=== PATIENT | male | born 1960 | race Caucasian/White ===

== ENCOUNTER 2016-08-17 15:31 | Emergency (ER) | payer MEDICARE, OTHER ==
[~2016-08-17 15:31] MED LIST: ASAB PO; CALMOSEPTINE EX; D100 PO; KEPPRA500 PO; LEVOTHYROXIN200 MCG PO; NIASPAN500 PO; PEPCID COMPLETE PO; PRAVACHOL40 MG PO; ZOLOFT25 MG PO
[2016-10-14] MEDS ORDERED: ASAB PO (18:18)
[2016-10-14] MEDS ORDERED: VITAMIN D31000 UNIT PO ×2 (18:20→20:21)
[2016-10-14] MEDS ORDERED: B121000P IM (18:21)
[2016-10-14] MEDS ORDERED: ZOL50 PO ×2 (18:22→20:22)
[2016-10-14] MEDS ORDERED: D100 PO ×3 (18:26→20:23)
[2016-10-14] MEDS ORDERED: VIT B-SIX 50 MG50 MG PO ×2 (18:27→20:26)
[2016-10-14] MEDS ORDERED: MULTIPLE VIT PO (18:28)
[2016-10-14] MEDS ORDERED: CEFT5 PO ×2 (18:32→20:29)
[2016-10-14] MEDS ORDERED: LEVOTHYROXIN200 MCG PO (20:18)
[2016-10-14] MEDS ORDERED: HALF81 PO (20:18)
[2016-10-14] MEDS ORDERED: PRAVACHOL40 MG PO (20:20)
[2016-10-14] MEDS ORDERED: KEPPRA500 PO (20:24)
[2016-10-14] MEDS ORDERED: CALMOSEPTINE TOP (20:25)
[2016-10-14] MEDS ORDERED: PEPCID COMPLETE PO (20:25)
[2016-10-14] MEDS ORDERED: MULTIPLE VIT (20:26)
[2016-10-18] MEDS ORDERED: ULTRAM50 (09:31)
[2016-10-18] MEDS ORDERED: CLEOCIN300 MG (09:31)
[2016-10-18] MEDS ORDERED: ULTRAM50 PO (14:10)
[2016-10-18] MEDS ORDERED: CLEOCIN300 MG PO (14:11)
== END 2016-08-17 15:35 | disposition home or self-care (01) ==
LOC: ER 15:31
DX: M25.512 Pain in left shoulder (principal); M54.2 Cervicalgia; Z79.82 Long term (current) use of aspirin; Z79.899 Other long term (current) drug therapy
CPT/HCPCS: 72125; 73030-LT; 99284